=== PATIENT | female | born 1960 | race Caucasian/White ===

== ENCOUNTER → 2019-02-19 | Outpatient (REF) | payer BC ==
[~2019-02-19] MED LIST: ADV250INH INH; ALPR0.5T3 PO; ALPR1TAB3 PO; AMBI10TA PO; ATOR40TA75 PO; BACT800T5 PO; BREO1INH INH; BUPR300T92 PO; CALC-190 PO; CBD OIL; DAPT500I IV; ESTR1TAB PO; HYDR-2808 PO; KEFL250C11 PO; LAMI1TAB8 PO; LEVAINH INH; LEVO75TA4 PO; NICO21PAT TD; OMEG1CAP16 PO; OXAZ30CA2 PO; OXYC-517 PO; PERC5TAB12 PO; PHEN37.5 PO; QUET1TAB8 PO; VITA100T59 PO; VITA200021 PO; VITA500046 PO; VITA50005 PO; VITMTA PO; WELL100T PO
[2019-02-19 16:03] LABS: BASO # 0.1 10^3/uL (0.0-0.2); BASO % 0.6 % (0.0-1.0); EOS # 0.1 10^3/uL (0.0-0.5); EOS % 0.7 % (0.0-3.0); HEMATOCRIT 36.9 % (36.0-47.0); HEMOGLOBIN 11.4 g/dl (12.0-15.5); LYMPH # 1.5 10^3/uL (1.5-5.0); LYMPH % 16.9 % (24.0-44.0); MEAN CORPUSCULAR HEMOGLOBIN 28.6 pg (27.0-33.0); MEAN CORPUSCULAR HGB CONC 30.9 g/dl (32.0-36.5); MEAN CORPUSCULAR VOLUME 92.5 fl (80.0-96.0); MONO # 0.5 10^3/uL (0.0-0.8); MONO % 5.8 % (0.0-5.0); NEUTROPHILS # 6.8 10^3/uL (1.5-8.5); NEUTROPHILS % 75.8 % (36.0-66.0); PLATELET COUNT, AUTOMATED 361 10^3/uL (150-450); RED BLOOD COUNT 3.99 10^6/uL (4.00-5.40)
[2019-02-19 16:44] LABS: ERYTHROCYTE SEDIMENTATION RATE 36 mm/hr (0-30)
== END ==
LOC: M LABDRAW1 11:06 → MERGE 11:06
PROVIDERS: ATTEND Orthopaedic Surgery Hand Surgery
DX: Z47.1 Aftercare following joint replacement surgery (principal)

== ENCOUNTER → 2019-06-12 | Outpatient (CLI) | payer BC, MEDICARE ==
[~2019-06-12] MED LIST changes: +MONT10TA2 PO
[2019-06-12 10:46] LABS: HEMOGLOBIN 12.7 g/dl (12.0-15.5); MEAN CORPUSCULAR HEMOGLOBIN 25.5 pg (27.0-33.0); MEAN CORPUSCULAR HGB CONC 30.2 g/dl (32.0-36.5); MEAN CORPUSCULAR VOLUME 84.2 fl (80.0-96.0); PLATELET COUNT, AUTOMATED 219 10^3/uL (150-450); RED BLOOD COUNT 4.99 10^6/uL (4.00-5.40); WHITE BLOOD COUNT 6.2 10^3/uL (4.0-10.0)
[2019-06-12 10:56] LABS: INR 0.99; PROTHROMBIN TIME 12.8 SECONDS (11.8-14.0)
[2019-06-12 11:15] LABS: ALBUMIN 3.7 GM/DL (3.2-5.2); ALT/SGPT 21 U/L (12-78); BILIRUBIN,TOTAL 0.3 MG/DL (0.2-1.0); BLOOD UREA NITROGEN 19 MG/DL (7-18); CALCIUM LEVEL 8.4 MG/DL (8.8-10.2); CARBON DIOXIDE LEVEL 27 MEQ/L (21-32); CHLORIDE LEVEL 111 MEQ/L (98-107); CREATININE FOR GFR 0.98 MG/DL (0.55-1.30); GLOMERULAR FILTRATION RATE > 60.0 (>45); GLUCOSE, FASTING 85 MG/DL (70-100); POTASSIUM SERUM 4.3 MEQ/L (3.5-5.1); SODIUM LEVEL 143 MEQ/L (136-145); TOTAL PROTEIN 6.8 GM/DL (6.4-8.2)
--- NOTE | 2019-06-13 02:56 | REP ---
Clinical: Preoperative assessment. Technique: PA and lateral. Comparison: None. Findings: Mediastinum and cardiac silhouette normal. Lung vyas are relatively clear. A vague 1 cm density in the left lower lung zone midclavicular line likely represents asymmetric nipple shadow and less likely underlying nodule. However, follow-up x-ray nipple markers may be warranted for further investigation. Skeletal changes involving the proximal left humerus noted. Impression: 1. Presumed asymmetric left nipple shadow less likely representing underlying pulmonary nodule. Consider reevaluation using nipple markers as follow-up exam. Electronically Signed by Jadiel Pizarro MD 06/13/2019 02:47 A
--- NOTE | 2019-06-14 01:10 | ECGEPIP ---
[facility] Test Date: 2019-06-12 Pat Name: SHAHEED BURGESS Department: Room: - Gender: Female Information Support Project Manager: LIDIA : [id number] Requested By: OFE Mixon Order Number: [id number] Reading MD: Ch[place] High Measurements Intervals [place] Rate: 72 P: 81 [place]: 158 QRS: 62 QRSD: 85 T: 79 QT: 391 QTc: 428 Interpretive Statements SINUS RHYTHM NONSPECIFIC T-WAVE ABNORMALITY NO PRIOR Electronically Signed on 06-14-2019 1:10:05 EST by Chico High
== END ==
LOC: M LAB 09:43
PROVIDERS: ATTEND Orthopaedic Surgery Hand Surgery
DX: Z01.818 Encounter for other preprocedural examination (principal)

== ENCOUNTER → 2019-06-13 | Outpatient (REF) | payer BC | LOC: M LABDRAW1 11:51 | DX: Z96.612 Presence of left artificial shoulder joint (principal) ==

== ENCOUNTER 2019-06-21 09:34 | Inpatient (IN) | payer MEDICARE, BC ==
--- NOTE | 2019-06-14 07:52 | HPE ---
DATE OF ANTICIPATED ADMISSION: 06/21/2019 ATTENDING PHYSICIAN: Dr. Urena CHIEF COMPLAINT: Left shoulder pain. HISTORY: This is a pleasant 59-year-old female patient with progressively worsening left shoulder pain and stiffness. She has failed to improve with conservative management, to include injections, rest, activity modifications, previous arthroplasty with secondary infection. She has pain with active and passive range of motions in all planes. She has elected for surgery for her continued symptoms. She has consented for a left revision arthroplasty by Dr. Urena. X-rays demonstrate intact antibiotic spacer in place with proximal migration. ALLERGIES: SULFA and PENICILLIN. Response: Urticaria and hives. INJECTABLE TORADOL, extremely nauseous and weak. CURRENT MEDICATIONS: - atorvastatin 40 mg - Breo Ellipta 100/25 mcg inhaler - levalbuterol HCL 1.25 mg/0.5 mL - estradiol 2 mg by mouth every day - CBD oil - quetiapine fumarate 100 mg - omega-3, 100 mg by mouth every day - alprazolam 2 mg - vitamin D 2000 units by mouth every day - levothyroxine sodium 75 mcg one by mouth every day - [id number] mg PAST MEDICAL HISTORY: 1. Hypothyroidism. 2. Hyperlipidemia. 3. Chronic obstructive pulmonary disease (COPD). 4. Insomnia. 5. Depression. 6. Anxiety. FAMILY HISTORY: Noncontributory. Patient is a current smoker, one to two packs daily. She does not use alcohol. REVIEW OF SYSTEMS: Denies fevers or chills. Denies chest pain, shortness of breath, or cough. Denies difficulty breathing. Denies abdominal pain. Denies nausea or vomiting. Has persistent pain in the left shoulder with range of motion in all planes. Denies upper respiratory infection (URI) or urinary tract infection (UTI) symptoms. VITAL SIGNS: Height 61, weight 139, temperature 97.9, blood pressure 121/79, pulse 84, respiratory rate 16. PHYSICAL EXAMINATION: Today reveals a well-nourished, well-developed, alert female patient without an antalgic gait. Exam of the left shoulder: Skin to be intact. No erythema, edema, or ecchymosis. She has tenderness over the anterolateral aspect of her shoulder with decreased range of motion in all planes. Well-perfused left lower extremity. Neck is supple without adenopathy or jugular venous distention (JVD). Lungs are clear to auscultation without rales or wheeze. Heart: Regular rate and rhythm. Abdomen: Bowel sounds present. EKG: Noted for sinus rhythm. Chest x-ray: No acute cardiopulmonary process noted. LABORATORY WORK: White count 6.2, red count 4.99, hemoglobin 12.7, hematocrit 42.0, ESR of 12. Prothrombin time 12.8, INR 0.99. Glucose 85, BUN 19, creatinine 0.98, sodium 143, potassium 4.3. PREOPERATIVE MEDICAL OPTIMIZATION: Patient does not have a provider at this time. Reviewed pre and post operative instructions to include but not limited to-need to be NPO after midnight, when to stop NSAIDs and ASA, importance of following primarys and cardiologists recommendations for stopping anticoagulants and the primary recommendations for how to take their daily medications IMPRESSION: Chronic left shoulder pain with previous secondary infection after arthroplasty. PLAN: Consented for a revision left shoulder arthroplasty by Dr. Urena. CELIA
[~2019-06-21] VITALS: Ht 154.9 cm; Wt 63.5 kg
[2019-06-21] VITALS (7 sets, daily range): BP systolic 120–140; BP diastolic 56–76
[~2019-06-21 09:34] MED LIST changes: +LR 1,000 ML IV ONE; -MONT10TA2 PO; +MONT10TA4 PO; +QUET100T2 PO; -QUET1TAB8 PO; +VITA-199 PO; +ZAFI1TAB PO; +ceFAZolin SOD 2 GM in IV 1 EA IV ONE
[2019-06-21] MEDS ORDERED: ROCURONIUM BROMIDE 50 MG/5 ML VIAL As Ordered ONE ×2 (10:26→13:19)
[2019-06-21] MEDS ORDERED: MIDAZOLAM INJ 2 MG/2 ML VIAL (J2250) As Ordered ONE ×2 (10:26→11:02)
[2019-06-21] MEDS ORDERED: LIDOCAINE 2% INJ 100 MG/5 ML SDV (FOR ANES.) As Ordered ONE (10:26)
[2019-06-21] MEDS ORDERED: propofoL 200 MG/20 ML VIAL As Ordered ONE (10:26)
[2019-06-21] MEDS ORDERED: ONDANSETRON 4MG/2ML VIAL (J2405) As Ordered ONE (10:27)
[2019-06-21] MEDS ORDERED: fentaNYL 100 MCG/2 ML INJECTION (J3010) As Ordered ONE ×2 (10:27→11:02)
[2019-06-21] MEDS ORDERED: dexameTHASONE 4 MG/ML 1ML VIAL (J1100) As Ordered ONE (10:27)
[2019-06-21] MEDS ORDERED: CLINDAMYCIN 900 MG/50 ML PREMIX BAG As Ordered ONE (10:55)
[2019-06-21] MEDS ORDERED: ALBUTEROL SULFATE 2.5 MG/0.5 ML INH NEB SOLN As Ordered ONE (10:56)
[2019-06-21] MEDS ORDERED: LEVALBUTEROL 1.25 MG/0.5 ML CONCENTRATE NEB INH ONE (11:00)
[2019-06-21] MEDS ORDERED: CLINDAMYCIN 900 MG in IV 1 EA IV ONE (11:00)
[2019-06-21] MEDS ORDERED: EPINEPHrine INJ 1 MG/ML 1ML VIAL As Ordered ONE (11:12)
[2019-06-21] MEDS ORDERED: VANCOMYCIN HCL 1,000 MG, VIAL MATE ADAPTER 1 EACH in D5W 250 ML IV ONE (11:30)
[2019-06-21] MEDS ORDERED: MIDAZOLAM INJ 2 MG/2 ML VIAL (J2250) IV ONE (12:15)
[2019-06-21] MEDS ORDERED: fentaNYL 100 MCG/2 ML INJECTION (J3010) IV ONE (12:15)
[2019-06-21] MEDS ORDERED: PHENYLephrine HCL 500 MCG/5 ML (100MCG/ML) SYRINGE (J2370) As Ordered ONE ×2 (12:21→12:42)
[2019-06-21] MEDS ORDERED: PHENYLEPHRINE INJ 10MG/ML VIAL (J2370) As Ordered ONE (12:22)
[2019-06-21] MEDS ORDERED: ROPIvacaine 0.5% 30 ML INJECTION (J2795 PER 1MG) ONE (13:29)
[2019-06-21] MEDS ORDERED: dexameTHASONE 10 MG/1 ML VIAL PRES.FREE (J1100) ONE (13:29)
[2019-06-21] MEDS ORDERED: SUGAMMADEX SODIUM 500 MG/5 ML VIAL (BRIDION) As Ordered ONE (13:59)
[2019-06-21] MEDS: fentaNYL 100 MCG/2 ML INJECTION (J3010) IV PRN ×4 (14:38→14:55)
--- NOTE | 2019-06-21 14:49 | REP ---
Portable left shoulder single AP view: There is a total shoulder arthroplasty with the components tightly applied and in satisfactory positions alignment. Electronically Signed by Aaron Claros MD 06/21/2019 02:40 P
[2019-06-21] MEDS ORDERED: ONDANSETRON 4MG/2ML VIAL (J2405) IV PRN (15:00)
[2019-06-21] MEDS ORDERED: oxyCODONE 5MG TAB PO PRN (15:00)
[2019-06-21] MEDS ORDERED: LR 1,000 ML IV SCH (15:00)
[2019-06-21] MEDS ORDERED: KETOROLAC 30 MG/ML VIAL (J1885) As Ordered ONE (15:12)
--- NOTE | 2019-06-21 15:25 | RO ---
DATE OF PROCEDURE: 06/21/2019 PREPROCEDURE DIAGNOSES: Left infected reverse shoulder replacement, status post irrigation and debridement and interspace placement. POSTPROCEDURE DIAGNOSES: Left infected reverse shoulder replacement, status post irrigation and debridement and interspace placement. PROCEDURE: Left shoulder irrigation and debridement of deep infection, complex with removal of deep hardware and placement of a revision reverse shoulder replacement, BLANKENSHIP. Frozen section taken intraoperatively with cultures. SURGEON: Neil Urena MD HYDRAULIC AND PLUMBING INSTALLER: None. PREOPERATIVE ANTIBIOTICS: 1 gram of vancomycin and 900 mg of clindamycin. ESTIMATED BLOOD LOSS: Approximately 250 mL. IMPLANTS: BLANKENSHIP reverse shoulder replacement, 15 stem with a 9 mm truck trailer mechanic and a 3 mm poly, 40 glenosphere with a medium peg and a 30 and 25 mm screw. OPERATIVE FINDINGS: We took deep tissue samples and sent them to pathology during the procedure. These came back as at most 1 white blood cell per high powered vyas, suggestive of no active infection or inflammation. Decision was made to proceed with revision reverse shoulder arthroscopy. INDICATIONS: This is a 59-year-old female who suffered a four part proximal humerus fracture this past December. Decision was made to undergo reverse shoulder arthroplasty at that time, we were unable to get adequate fixation for open reduction, internal fixation (ORIF). Subsequently, the patient developed subacute infection. She underwent irrigation and debridement and antibiotic cement spacer placed. After prolonged IV antibiotics and antibiotic holiday, all the laboratories showed no signs of active infection. Decision was made to do a revision reverse shoulder arthroscopy. We discussed the risks and benefits of this, including infection, damage to surrounding structures, incomplete relief and the patient understood and wished to proceed. DESCRIPTION OF PROCEDURE: The patient was brought to the operating room and placed in supine position. Underwent general anesthesia. At which point, the left arm was prepped and draped in the usual fashion. A time out was performed identifying site, side and surgery. We then made a longitudinal incision over the previous scar at the deltopectoral interval. We dissected through subcutaneous tissue and careful of superficial bleeders. We encountered axillary vein. Cephalic vein was very deep within the scar and unfortunately had to be tied off due to bleeding, at which point we split the deltopectoral interval and found the conjoin tendon and packed it up medially. We removed adhesions from the subdeltoid space. We placed a Benz retractor in place. We then took tissue sample deep within the glenohumeral joint and sent it off to pathology. At this point, we continued debriding the area of all scar tissue. At this point, we irrigated 3 liters of normal saline while waiting for the pathology to return. Once it has returned and it was suggestive of no acute inflammation, we decided to proceed with reverse shoulder replacement revision. We then debrided the glenoid, placed our centered antony approximately 10 degrees inferior and 20 degrees of anteversion. We reamed to subchondral bleeding bone, at which point we drilled for our center peg of medium size and impacted the baseplate. We then drilled a 30 superior and 25 inferior screw and placed them in, which had very good bite. We then impacted the 40 mm glenosphere on the Stout taper and then used the central locking screw in place. Once this was done, we turned our attention to the humerus. We sequentially reamed up to 15, at which point we had a nice tight fit of diaphysis. We then made a trial body at 15 and worked our up sequentially to a 9 truck trailer mechanic and 3 poly. We then opened up the 15 stem, the body, along with 9 mm truck trailer mechanic, at which point we trialed standard 3 mm again. We were very happy with the 3 mm fit. There was good range of motion and about 1 mm or 2 on shuck test. We then opened the 3 mm poly and impacted it. We ran another 1.5 liters of saline and irrigating through range of motion and very happy with the stability in range of motion of the shoulder, at which point we closed the deltopectoral with 0 Prolene, subcutaneous tissue with 2-0 PDS and skin with 2-0 nylon, and placed a foam dressing. The patient was then placed in a sling. She was awakened and taken to the postanesthesia care unit (PACU) in stable condition. We will start to work on pain control and range of motion and be placed on antibiotic prophylaxis. ADDENDUM: Within the operative description, once we entered the joint and soft tissue we then used a flexible osteotome to remove the cement bone interface of the proximal humerus to remove the antibiotic cement spacer. This was done, then we used curettes to debride the humeral shaft, proximal humeral shaft within the intramedullary canal along with the glenoid to help irrigate and debride any previous sign of infection or bone at that time along with scar tissue. Modifier 22 added due to the increased time needed due to revision surgery along with multiple previous surgeries and scarring due to infection taking siginificatly more time and additional difficulty. Addendum Dictated: 06/21/2019 1442 Addendum Transcribed: 06/21/2019 1449 esther YANG
[2019-06-21] MEDS ORDERED: KETOROLAC 30 MG/ML VIAL (J1885) IV ONE (15:30)
--- NOTE | 2019-06-21 15:53 | RO ---
DATE OF PROCEDURE: 06/21/2019 COPIED AND PASTED TO ORIGINAL OPERATIVE NOTE ADDENDUM: Within the operative description, once we entered the joint and soft tissue we then used a flexible osteotome to remove the cement bone interface of the proximal humerus to remove the antibiotic cement spacer. This was done, then we used curettes to debride the humeral shaft, proximal humeral shaft within the intramedullary canal along with the glenoid to help irrigate and debride any previous sign of infection or bone at that time along with scar tissue. modifier 22 added due to the increased time and difficulty needed due to revision surgery along with multiple previous surgeries due to infection. Addendum Dictated: 06/21/2019 1442 Addendum Transcribed: 06/21/2019 1449 esther YANG
[2019-06-21] MEDS ORDERED: LEVALBUTEROL 1.25 MG/0.5 ML CONCENTRATE NEB INH PRN (16:30)
[2019-06-21] MEDS: NS 1,000 ML IV SCH (16:34)
[2019-06-21] MEDS ORDERED: PILL CUTTER 1 EACH XX PRN (16:45)
--- NOTE | 2019-06-21 16:49 | CR.PDOC ---
General Date of Consultation: Jun 21, 2019 Referring Provider: OFE DECKER MD Consultation REASON FOR CONSULTATION/CHIEF COMPLAINT: Medical management. HISTORY OF PRESENT ILLNESS: This is 59 years old female with past medical history of 4 part proximal humeral fracture last year and was decided to undergo to wear shoulder arthroplasty at that time as orthopedics was unable to do ORIF. , But unfortunately, patient developed subacute infection of the site. Hence, she was treated with prolonged antibiotics and once the sugars were negative, it was decided to perform a left infected reverse shoulder replacement surgery. Patient had the left infected reverse shoulder replacement and is status post I&D done today and OR and transferred to medical floor for postop care. Patient complains of pain at the surgical site, otherwise no complaints of chest pain, shortness of breath, nausea, vomiting, abdominal pain, extra ALLERGIES: Please see below. HOME MEDICATIONS: Please see below. PAST MEDICAL HISTORY: Hypothyroidism, hyperlipidemia, COPD, insomnia, depression, anxiety PAST SURGICAL HISTORY: , 2. Hysterectomy 10 years ago with radiation chemotherapy total shoulder repair FAMILY HISTORY: Family history is noncontributory. No history of diabetes or cancer in the [facility] SOCIAL HISTORY: Patient smokes 1 pack per day and occasional alcohol use but no drug use REVIEW OF SYSTEMS: CONSTITUTIONAL: No fever, headache. HEENT: No eyes or ear pain. CARDIOVASCULAR: . No chest pain or palpitations. RESPIRATORY: No cough or shortness of breath. GENITOURINARY: , No dysuria, frequency. MUSCULOSKELETAL: . Complaining of pain at the surgical site. GASTROINTESTINAL: No nausea, vomiting . SKIN: No rash or itching. NEUROLOGICAL: . No weakness or motor sensory weakness. PSYCHIATRIC: No anxiety or depression. ENDOCRINE: , No diabetes, but has history of hypothyroid. HEMATOLOGIC/LYMPHATIC: No anemia or leukemia by history. ALLERGIC/IMMUNOLOGIC: None. PHYSICAL EXAMINATION: VITAL SIGNS: Heart rate 66, respiratory rate of 16, blood pressure 109/59, pulse ox is 96% on room air GENERAL APPEARANCE: Within normal range. HEENT: PERRLA. Extraocular muscles intact. RESPIRATORY: Clear to A&P. CARDIOVASCULAR: S1, S2, regular. ABDOMEN: , Soft, nontender. Once was present. EXTREMITIES: Dressing of the left shoulder. NEUROLOGICAL: . No focal motor sensory deficit. PSYCHIATRIC: Within normal limits. LABORATORY DATA: WBC count is 6.2, hemoglobin 12.7, hematocrit 42, platelets are 219. Electrolyte within normal range. His BUN of 19, a creatinine of 0.98 done on the 2019 as outpatient ASSESSMENT/PLAN: #1 status post left infected reverse shoulder replacement, status post I&D #2 COPD #3 hypothyroidism. #4. Hyperlipidemia #5 depression #6. Anxiety Patient has been transferred to medical floor for postop care Physical therapy evaluation Pain management as per orthopedic DVT prophylaxis as per orthopedic Will continue all patient's home meds including fluticasone inhaler Will also continue all patient's psychiatric meds including alprazolam and Sero quel Will continue atorvastatin, Lamictal and levothyroxine A.m. lab work, CBC, CMP and TSH is been ordered Discharge planning as per orthopedic surgery Vital Signs/I&O Vital Signs Date Time Temp Pulse Resp B/P (MAP) Pulse Ox O2 Delivery O2 Flow Rate FiO2 06/21/19 15:55 66 16 109/59 (76) 96 Nasal Cannula 2 06/21/19 15:30 97.0 Laboratory Data Microbiology Microbiology 06/21/19 Fungal Smear, Received Pending 06/21/19 Fungal Culture, Received Pending 06/21/19 Gram Stain - Final, Resulted 06/21/19 Wound Culture, Resulted Pending 06/21/19 Anaerobic Culture, Resulted Pending 06/21/19 Gram Stain - Final, Resulted 06/21/19 Wound Culture, Resulted Pending 06/21/19 Anaerobic Culture, Resulted Pending Allergies Coded Allergies: Penicillins (Verified Allergy, Severe, DIFFICULTY BREATHING, HIVES, 06/07/19) Sulfa (Sulfonamide Antibiotics) (Verified Allergy, Intermediate, rash and hives, 06/20/19) tramadol (Verified Adverse Reaction, Intermediate, HALLUCINATIONS, 06/20/19) Home Medications Scheduled Alprazolam (Alprazolam) 1 Mg Tab, 1 MG PO BID, (Reported) Atorvastatin Calcium (Atorvastatin Calcium) 40 Mg Tablet, 40 MG PO DAILY, (Reported) Cholecalciferol (Vitamin D3) (Vitamin D3) 10,000 Unit Tablet, 50,000 UNIT PO 1XWK, (Reported) Estradiol (Estradiol) 1 Mg Tab, 2 MG PO DAILY, (Reported) Fluticasone/Vilanterol (Breo Ellipta 100-25 Mcg INH) 1 Each Blst.w.dev, 1 PUFF INH DAILY, (Reported) Lamotrigine (Lamictal) 150 Mg Tablet, 150 MG PO DAILY, (Reported) Levothyroxine Sodium (Levothyroxine Sodium) 75 Mcg Tablet, 75 MCG PO DAILY, (Reported) Nicotine (Nicotine Patch) 21 Mg Patch.td24, 1 PATCH TD DAILY for 30 Days, #30 Quetiapine Fumarate (Quetiapine Fumarate) 100 Mg Tablet, 100 MG PO DAILY, (Reported) Zafirlukast (Zafirlukast) 20 Mg Tablet, 20 MG PO BIDPC, (Reported) Scheduled PRN Levalbuterol Hydrochloride (Xopenex Hfa) 45 Mcg/Act Aer, 2 PUFF INH Q4H PRN for SOB/WHEEZING, (Reported) ALESSANDRA CAMACHO MD Jun 21, 2019 16:49
[2019-06-21] MEDS: CLINDAMYCIN 600 MG in IV 1 EA IV SCH (18:51)
[2019-06-21] MEDS: MORPHINE 2 MG/ML 1ML VIAL (J2270) IV PRN (18:51)
[2019-06-21] MEDS: FLUTICASONE HFA 110 MCG 12 GM INHALER (FLOVENT) INH SCH (20:26)
[2019-06-21] MEDS: ALPRAZolam 0.5 MG TAB PO SCH (20:26)
[2019-06-21] MEDS: lamoTRIgine 100MG TAB PO SCH (20:33)
[2019-06-21] MEDS: NICOTINE 21MG/24HR 1 EA TRANSDERMAL TD SCH (20:34)
[2019-06-21] MEDS: QUEtiapine FUMARATE 100 MG TAB PO SCH (20:35)
[2019-06-21] MEDS: KETOROLAC 30 MG/ML VIAL (J1885) IV SCH (20:43)
[2019-06-21] MEDS: oxyCODONE 5MG TAB PO PRN (23:39)
[2019-06-22] MEDS: NS 1,000 ML IV SCH ×2 (00:38→11:00)
[2019-06-22 02:00] VITALS: BP 137/66
[2019-06-22] MEDS: KETOROLAC 30 MG/ML VIAL (J1885) IV SCH (02:19)
[2019-06-22] MEDS: CLINDAMYCIN 600 MG in IV 1 EA IV SCH ×2 (03:41→11:05)
[2019-06-22] MEDS: oxyCODONE 5MG TAB PO PRN ×5 (03:43→22:39)
[2019-06-22 06:00] VITALS: BP 123/73
[2019-06-22] MEDS: LEVOTHYROXINE 75MCG TABLET (0.075MG) PO SCH (06:05)
[2019-06-22] MEDS: MORPHINE 2 MG/ML 1ML VIAL (J2270) IV PRN (06:14)
[2019-06-22 06:49] LABS: BASO % 0.2 % (0.0-1.0); HEMATOCRIT 27.1 % (36.0-47.0); HEMOGLOBIN 8.3 g/dl (12.0-15.5); LYMPH # 1.1 10^3/uL (1.5-5.0); LYMPH % 10.9 % (24.0-44.0); MEAN CORPUSCULAR HGB CONC 30.6 g/dl (32.0-36.5); MONO # 0.7 10^3/uL (0.0-0.8); MONO % 7.2 % (0.0-5.0); NEUTROPHILS % 81.2 % (36.0-66.0); PLATELET COUNT, AUTOMATED 187 10^3/uL (150-450); RED BLOOD COUNT 3.19 10^6/uL (4.00-5.40); WHITE BLOOD COUNT 9.9 10^3/uL (4.0-10.0)
[2019-06-22 07:06] LABS: INR 0.97; PARTIAL THROMBOPLASTIN TIME 27.7 SECONDS (25.0-38.4); PROTHROMBIN TIME 12.6 SECONDS (11.8-14.0)
[2019-06-22 07:27] LABS: ALBUMIN 2.9 GM/DL (3.2-5.2); ALT/SGPT 23 U/L (12-78); BILIRUBIN,TOTAL 0.2 MG/DL (0.2-1.0); BLOOD UREA NITROGEN 18 MG/DL (7-18); CALCIUM LEVEL 7.5 MG/DL (8.8-10.2); CARBON DIOXIDE LEVEL 23 MEQ/L (21-32); CHLORIDE LEVEL 114 MEQ/L (98-107); CREATININE FOR GFR 0.88 MG/DL (0.55-1.30); GLOMERULAR FILTRATION RATE > 60.0 (>45); GLUCOSE, FASTING 111 MG/DL (70-100); SODIUM LEVEL 142 MEQ/L (136-145); THYROID STIMULATING HORMONE 0.364 uIU/ML (0.358-3.740); TOTAL PROTEIN 5.6 GM/DL (6.4-8.2)
[2019-06-22] MEDS: FLUTICASONE HFA 110 MCG 12 GM INHALER (FLOVENT) INH SCH ×2 (08:36→21:00)
[2019-06-22] MEDS: estradioL 1 MG TAB PO SCH (09:29)
[2019-06-22] MEDS: ATORVASTATIN 20 MG TAB PO SCH (09:29)
[2019-06-22] MEDS: NICOTINE 21MG/24HR 1 EA TRANSDERMAL TD SCH (09:30)
[2019-06-22] MEDS: ALPRAZolam 0.5 MG TAB PO SCH ×2 (09:30→21:43)
[2019-06-22 10:00] VITALS: BP 131/68
--- NOTE | 2019-06-22 10:04 | IPNPDOC ---
Subjective Date Seen The patient was seen on 06/22/19. Subjective Chief Complaint/HPI Patient is comfortable in no distress. Pain is under well control with oxycodone General: Denies: ROS Unobtainable, Chills, Night Sweats, Fatigue, Malaise, Normal Appetite, Other Symptoms Constitutional: Denies: Chills, Fever, Malaise, Night Sweats, Weakness, Fatigue, Weight Loss, Lethargy, Other Pulmonary: Denies: Dyspnea, Cough, Pleuritic Chest Pain, Other Symptoms Cardiovascular: Denies: Chest Pain, Palpitations, Orthopnea, Paroxysmal Noc. Dyspnea, Edema, Lt Headedness, Other Symptoms Gastrointestinal: Denies: Nausea, Vomiting, Abdominal Pain, Diarrhea, Constipation, Melena, Hematochezia, Other Symptoms Genitourinary: Denies: Dysuria, Frequency, Incontinence, Hematuria, Retention, Other Symptoms Musculoskeletal: Denies: Neck Pain, Back Pain, Shoulder Pain, Arm Pain, Hand Pain, Leg Pain, Foot Pain, Joint Pain, Muscle Pain, Spasms, Other Symptoms Neurological: Denies: Weakness, Numbness, Incoordination, Change in speech, Confusion, Seizures, Other Symptoms Objective Physical Examination Eye Exam: Positive: PERRLA, Conjunctiva & lids normal ENT Exam: Positive: Atraumatic, Mucous membr. moist/pink Chest Exam: Positive: Clear to auscultation Heart Exam: Positive: Rate Normal, Normal S1, Normal S2 Abdomen Exam: Positive: Normal bowel sounds, Soft Extremity Exam: Positive: Normal pulses Skin Exam: Positive: Nl turgor and temperature Assessment /Plan Problems (1) Prosthetic joint infection Status: Acute Problem Text: (2) Hyperlipidemia Status: Chronic (3) HTN (hypertension) Status: Chronic (4) COPD (chronic obstructive pulmonary disease) Status: Chronic (5) Depression Status: Chronic (6) Anxiety Status: Chronic Plan/VTE VTE Prophylaxis Ordered?: Yes Plan #1 status post left infected reverse shoulder replacement, status post I&D #2 COPD #3 hypothyroidism. #4. Hyperlipidemia #5 depression #6. Anxiety Patient receiving physical therapy on the medical floor Symptoms are very well, very well under control secondary to pain management DVT prophylaxis as per orthopedic Continue patient's home meds Also continue patient's psych meds as well Discharge planning as per orthopedic VS, I&O, 24H, [place] Vital Signs/I&O Vital Signs Date Time Temp Pulse Resp B/P (MAP) Pulse Ox O2 Delivery O2 Flow Rate FiO2 06/22/19 09:45 16 06/22/19 06:00 97.4 89 123/73 (90) 93 Nasal Cannula 1.5 I&O- Last 24 Hours up to 6 AM 06/22/19 06:00 Intake Total 4340 ml Output Total 250 ml Balance 4090 ml Laboratory Data 24H LABS Laboratory Tests 2 06/22/19 06:33: Immature Granulocyte % (Auto) 0.5, Neutrophils (%) (Auto) 81.2H, Lymphocytes (%) (Auto) 10.9L, Monocytes (%) (Auto) 7.2H, Eosinophils (%) (Auto) 0.0, Basophils (%) (Auto) 0.2, Neutrophils # (Auto) 8.0, Lymphocytes # (Auto) 1.1L, Monocytes # (Auto) 0.7, Eosinophils # (Auto) 0.0, Basophils # (Auto) 0.0, Nucleated Red Blood Cells % (auto) 0.0, Prothrombin Time 12.6, Prothromb Time International Ratio 0.97, Activated Partial Thromboplast Time 27.7, Anion Gap 5L, Glomerular Filtration Rate > 60.0, Calcium Level 7.5L, Total Bilirubin 0.2, Aspartate Amino Transf (AST/SGOT) 19, Alanine Aminotransferase (ALT/SGPT) 23, Alkaline Phosphata se 97, Total Protein 5.6L, Albumin 2.9L, Albumin/Globulin Ratio 1.07, Thyroid Stimulating Hormone (TSH) 0.364 CBC/BMP Laboratory Tests 06/22/19 06:33 Microbiology Microbiology 06/21/19 Fungal Smear, Received Pending 06/21/19 Fungal Culture, Received Pending 06/21/19 Gram Stain - Final, Resulted 06/21/19 Wound Culture, Resulted Pending 06/21/19 Anaerobic Culture, Resulted Pending 06/21/19 Gram Stain - Final, Resulted 06/21/19 Wound Culture, Resulted Pending 06/21/19 Anaerobic Culture, Resulted Pending ALESSANDRA CAMACHO MD Jun 22, 2019 10:04
[2019-06-22 14:00] VITALS: BP 136/68
[2019-06-22 18:00] VITALS: BP 129/70
[2019-06-22] MEDS: QUEtiapine FUMARATE 100 MG TAB PO SCH (21:43)
[2019-06-22] MEDS: lamoTRIgine 100MG TAB PO SCH (21:43)
[2019-06-22 22:00] VITALS: BP 148/75
[2019-06-23 00:34] VITALS: O2SAT 94
[2019-06-23] MEDS: oxyCODONE 5MG TAB PO PRN ×2 (02:52→09:43)
[2019-06-23] MEDS: LEVOTHYROXINE 75MCG TABLET (0.075MG) PO SCH (06:05)
[2019-06-23 06:11] VITALS: BP 136/78
[2019-06-23] MEDS ORDERED: OXYC-517 PO (06:37)
[2019-06-23] MEDS: FLUTICASONE HFA 110 MCG 12 GM INHALER (FLOVENT) INH SCH (08:54)
[2019-06-23] MEDS: NICOTINE 21MG/24HR 1 EA TRANSDERMAL TD SCH (09:00)
[2019-06-23 09:37] VITALS: O2SAT 95
[2019-06-23] MEDS: estradioL 1 MG TAB PO SCH (09:37)
[2019-06-23] MEDS: ALPRAZolam 0.5 MG TAB PO SCH (09:37)
[2019-06-23] MEDS: ATORVASTATIN 20 MG TAB PO SCH (09:37)
--- NOTE | 2019-06-23 10:34 | IPNPDOC ---
Subjective Date Seen The patient was seen on 06/23/19. Subjective Chief Complaint/HPI Patient is emotionally upset, crying in bed as per patient, her father has last night and she wished to be discharged home today. As per patient, she spoke with orthopedics last night and they had met are made arrangements to discharge her today General: Denies: ROS Unobtainable, Chills, Night Sweats, Fatigue, Malaise, Normal Appetite, Other Symptoms Pulmonary: Denies: Dyspnea, Cough, Pleuritic Chest Pain, Other Symptoms Cardiovascular: Denies: Chest Pain, Palpitations, Orthopnea, Paroxysmal Noc. Dyspnea, Edema, Lt Headedness, Other Symptoms Psych: Reports: Anger, Other Psych (upset) Objective Physical Examination ENT Exam: Positive: Atraumatic, Mucous membr. moist/pink Chest Exam: Positive: Clear to auscultation Heart Exam: Positive: Rate Normal, Normal S1, Normal S2 Abdomen Exam: Positive: Normal bowel sounds, Soft Extremity Exam: Positive: Normal pulses Assessment /Plan Problems (1) Prosthetic joint infection Status: Acute Problem Text: Patient will be discharged home today as per orthopedics recommendations Follow-up with orthopedics as outpatient Continue all present home medication as per discharge instructions (2) Hyperlipidemia Status: Chronic Problem Text: Continue home meds (3) HTN (hypertension) Status: Chronic Problem Text: Continue home meds (4) COPD (chronic obstructive pulmonary disease) Status: Chronic Problem Text: Continue home meds (5) Depression Status: Chronic Problem Text: Continue home meds (6) Anxiety Status: Chronic Problem Text: Continue home meds Plan/VTE VTE Prophylaxis Ordered?: Yes VS, I&O, 24H, Fishbone Vital Signs/I&O Vital Signs Date Time Temp Pulse Resp B/P (MAP) Pulse Ox O2 Delivery O2 Flow Rate FiO2 06/23/19 09:43 18 Room Air 06/23/19 06:11 97.7 69 136/78 (97) 92 06/22/19 07:20 1.0 I&O- Last 24 Hours up to 6 AM 06/23/19 06:00 Intake Total 855 ml Output Total 900 ml Balance -45 ml Laboratory Data Microbiology Microbiology 06/21/19 Fungal Smear, Received Pending 06/21/19 Fungal Culture, Received Pending 06/21/19 Gram Stain - Final, Complete 06/21/19 Wound Culture - Final, Complete 06/21/19 Anaerobic Culture - Final, Complete 06/21/19 Gram Stain - Final, Complete 06/21/19 Wound Culture - Final, Complete 06/21/19 Anaerobic Culture - Final, Complete ALESSANDRA CAMACHO MD Jun 23, 2019 10:34
--- NOTE | 2019-06-27 15:20 | DSES ---
DATE OF ADMISSION: 06/21/2019 DATE OF DISCHARGE: 06/23/2019 ATTENDING PHYSICIAN: Dr. Neil Urena ADMISSION DIAGNOSIS: Left infected reverse shoulder replacement status post irrigation and debridement and interspace placement. OTHER DIAGNOSES: Hypothyroid, hyperlipidemia, chronic obstructive pulmonary disease, insomnia, depression, anxiety. DISCHARGE DIAGNOSES: Left infected reverse shoulder replacement status post left shoulder irrigation and debridement of deep infection, complex with removal of deep hardware and placement of a revision reverse shoulder replacement, BLANKENSHIP. Frozen section taken intraoperatively with cultures. HISTORY: The patient is a 59-year-old female who suffered a four-part proximal humerus fracture this past December. Decision was made to undergo of reverse shoulder arthroplasty at that time. Subsequently, the patient developed subacute infection. She underwent irrigation and debridement and antibiotic cement spacer placement. After prolonged IV antibiotics and antibiotic holiday, all the laboratories showed no signs of active infection. Decision was made to do a revision reverse shoulder arthroplasty. Risks and benefits to include infection, damage to surrounding tissues and incomplete relief of symptoms was discussed with the patient and the patient consented for this elective procedure with Dr. Neil Urena. OPERATION PERFORMED: Left shoulder irrigation and debridement of deep infection, complex with removal of deep hardware, placement of a revision reverse shoulder replacement, BLANKENSHIP. Frozen section taken intraoperatively with cultures. HOSPITAL COURSE: The patient underwent a left shoulder, incision and drainage of a deep infection with removal of deep hardware and placement of a revision reverse shoulder replacement, BLANKENSHIP. Surgery was done under general anesthesia and was without complication. The patient was discharged on oral pain medications and will resume her preoperative medications and diet. She will use her sling and take her antibiotics as directed for prophylaxis. She will followup in our office in 7-10 days for wound check. The patient is encouraged to contact our office sooner if there is any increase in pain, redness, drainage, numbness or tingling in the extremity, fever greater than 101 degrees or any other concerns. Please see medical record for additional details. RIGOD
== END 2019-06-23 11:50 | disposition home or self-care (01) | DRG 483 ==
LOC: M OR 09:34 → EDSTATUS 12:00 → M MS5PR 16:12
PROVIDERS: ADMIT Orthopaedic Surgery Hand Surgery; ATTEND Orthopaedic Surgery Hand Surgery
PROC: 0RPK08Z Removal of Spacer from Left Shoulder Joint, Open Approach (ICD-10-PCS; 2019-06-21)
PROC: 0RRK0JZ Replacement of Left Shoulder Joint with Synthetic Substitute, Open Approach (ICD-10-PCS; principal; 2019-06-21 11:30)
DX: T84.59XA Infection and inflammatory reaction due to other internal joint prosthesis, initial encounter (principal); Z88.2 Allergy status to sulfonamides; Z88.0 Allergy status to penicillin; Z88.5 Allergy status to narcotic agent; Z79.899 Other long term (current) drug therapy; E03.9 Hypothyroidism, unspecified; E78.5 Hyperlipidemia, unspecified; J44.9 Chronic obstructive pulmonary disease, unspecified; G47.00 Insomnia, unspecified; F32.9 Major depressive disorder, single episode, unspecified; F41.9 Anxiety disorder, unspecified; F17.200 Nicotine dependence, unspecified, uncomplicated; Y83.1 Surgical operation with implant of artificial internal device as the cause of abnormal reaction of the patient, or of later complication, without mention of misadventure at the time of the procedure

== ENCOUNTER → 2019-10-24 | Outpatient (REF) | payer MEDICARE, BC ==
[~2019-10-24] MED LIST changes: -LR 1,000 ML IV ONE; -ceFAZolin SOD 2 GM in IV 1 EA IV ONE
[2019-10-24 14:13] LABS: BASO # 0.1 10^3/uL (0.0-0.2); BASO % 1.1 % (0.0-1.0); EOS # 0.7 10^3/uL (0.0-0.5); HEMATOCRIT 36.3 % (36.0-47.0); HEMOGLOBIN 11.4 g/dl (12.0-15.5); LYMPH # 1.3 10^3/uL (1.5-5.0); LYMPH % 23.8 % (24.0-44.0); MEAN CORPUSCULAR HEMOGLOBIN 24.8 pg (27.0-33.0); MEAN CORPUSCULAR HGB CONC 31.4 g/dl (32.0-36.5); MEAN CORPUSCULAR VOLUME 79.1 fl (80.0-96.0); MONO # 0.5 10^3/uL (0.0-0.8); NEUTROPHILS # 2.9 10^3/uL (1.5-8.5); NEUTROPHILS % 52.9 % (36.0-66.0); PLATELET COUNT, AUTOMATED 230 10^3/uL (150-450); RED BLOOD COUNT 4.59 10^6/uL (4.00-5.40); WHITE BLOOD COUNT 5.6 10^3/uL (4.0-10.0)
[2019-10-24 14:40] LABS: ERYTHROCYTE SEDIMENTATION RATE 1 mm/hr (0-30)
[2019-10-24 14:42] LABS: ALBUMIN 3.5 GM/DL (3.2-5.2); BILIRUBIN,TOTAL 0.3 MG/DL (0.2-1.0); C REACTIVE PROTEIN QUANTITATIV 1.59 MG/DL (0.00-0.30); CALCIUM LEVEL 8.7 MG/DL (8.8-10.2); CREATININE FOR GFR 1.09 MG/DL (0.55-1.30); GLOMERULAR FILTRATION RATE 54.5 (>45); POTASSIUM SERUM 3.7 MEQ/L (3.5-5.1); TOTAL PROTEIN 6.6 GM/DL (6.4-8.2); VANCOMYCIN LEVEL TROUGH 13.5 UG/ML (10.0-20.0)
== END ==
LOC: M SHH 13:30
DX: Z01.89 Encounter for other specified special examinations (principal)

== ENCOUNTER → 2022-04-29 | Outpatient (CLI) | payer BC, SELFPAY ==
[~2022-04-29] MED LIST changes: +ALPR1TAB6 PO; +ATOR80TA59 PO; +CALC600T60 PO; -DAPT500I IV; +DAPT500V8 IV; +ERGO500029 PO; +FLUT1BLS8 INH; -HYDR-2808 PO; +HYDR-4429 PO; -MONT10TA4 PO; +MONT10TA97 PO; +QUET200T2 PO
== END ==
LOC: M LABSMTC 09:27 → MERGE 09:30
PROVIDERS: ATTEND Anesthesiology
DX: Z01.812 Encounter for preprocedural laboratory examination (principal); Z11.52 Encounter for screening for COVID-19

== ENCOUNTER → 2022-05-03 | Outpatient (CLI) | payer BC, MEDICARE ==
[2022-05-03 15:52] LABS: HEMATOCRIT 41.6 % (36.0-47.0); HEMOGLOBIN 13.5 g/dl (12.0-15.5); MEAN CORPUSCULAR HGB CONC 32.5 g/dl (32.0-36.5); MEAN CORPUSCULAR VOLUME 92.4 fl (80.0-96.0); PLATELET COUNT, AUTOMATED 248 10^3/uL (150-450); WHITE BLOOD COUNT 6.7 10^3/uL (4.0-10.0)
[2022-05-03 16:11] LABS: CALCIUM LEVEL 8.6 MG/DL (8.3-10.6); CREATININE FOR GFR 1.08 MG/DL (0.55-1.30); GLOMERULAR FILTRATION RATE 54.7 (>45); POTASSIUM SERUM 3.9 MMOL/L (3.5-5.1)
[2022-05-03 16:14] LABS: FREE T4 1.11 NG/DL (0.89-1.76); THYROID STIMULATING HORMONE 1.706 uIU/ML (0.55-4.78)
== END ==
LOC: M LAB 15:17
PROVIDERS: ATTEND Plastic Surgery Surgery of the Hand
DX: J44.9 Chronic obstructive pulmonary disease, unspecified (principal); N64.81 Ptosis of breast; T85.44XA Capsular contracture of breast implant, initial encounter

== ENCOUNTER 2022-05-04 08:36 | Observation (INO) | payer SELFPAY ==
[~2022-05-04] VITALS: Ht 152.4 cm; Wt 57.2 kg
[~2022-05-04 08:36] MED LIST changes: +ALBUTEROL SULFATE 2.5MG/0.5ML INH NEB SOLN INH STA; +CLINDAMYCIN 900 MG in IV 1 EA IV ONE; +LIDOCAINE 2% 100MG/5ML SDV (FOR ANES.) As Ordered ONE; +LR 1,000 ML IV SCH; +MIDAZOLAM INJ 2MG/2ML VIAL As Ordered ONE; +ONDANSETRON 4MG 2ML VIAL As Ordered ONE; +ROCURONIUM BROMIDE 50MG/5ML VIAL As Ordered ONE; +diphenhydrAMINE 50MG/ML VIAL As Ordered ONE; +fentaNYL 250 MCG/5 ML INJECTION As Ordered ONE; +propofoL 200 MG/20 ML VIAL As Ordered ONE
[2022-05-04] MEDS ORDERED: SUGAMMADEX SODIUM 500 MG/5 ML VIAL (BRIDION) As Ordered ONE (08:56)
[2022-05-04] MEDS ORDERED: GENTAMICIN SULF 80MG/2ML VIAL As Ordered ONE (11:00)
[2022-05-04] MEDS ORDERED: BUPIVACAINE HCL 0.25% 10ML VIAL As Ordered ONE (11:00)
[2022-05-04] MEDS ORDERED: BUPIVACAINE LIPOSOME/PF 1.3% 20ML VIAL (13.3MG/ML)(EXPAREL) As Ordered ONE (11:00)
[2022-05-04] MEDS ORDERED: ePHEDrine SULFATE 25 MG/5 ML(5MG/ML) SYRINGE As Ordered ONE ×2 (11:55→12:22)
[2022-05-04] MEDS ORDERED: PHENYLephrine 500MCG 5ML (100MCG/ML) SYRINGE As Ordered ONE (12:19)
[2022-05-04] MEDS ORDERED: propofoL 200 MG/20 ML VIAL As Ordered ONE (12:35)
[2022-05-04] MEDS ORDERED: ACETAMINOPHEN 1000MG 100ML IV BAG As Ordered ONE (12:40)
[2022-05-04] MEDS ORDERED: ePHEDrine INJ 50MG/ML 1ML VIAL As Ordered ONE (12:50)
[2022-05-04] MEDS ORDERED: HYDROmorphone HCL 2MG/ML 1ML VIAL As Ordered ONE (13:36)
[2022-05-04] MEDS ORDERED: ONDANSETRON 4MG 2ML VIAL IV PRN ×2 (14:35→14:45)
[2022-05-04] MEDS ORDERED: ACETAMINOPHEN TAB 650MG DOSE (2X325MG) PO PRN (14:45)
[2022-05-04] MEDS ORDERED: LEVALBUTEROL HFA 45MCG/ACT 15GM INHALER INH PRN (14:45)
[2022-05-04] MEDS: fentaNYL 100 MCG/2 ML INJECTION IV PRN ×4 (15:34→16:19)
[2022-05-04] MEDS: oxyCODONE 5MG TAB PO PRN ×3 (15:35→20:30)
[2022-05-04] MEDS: LR 1,000 ML IV SCH (17:09)
[2022-05-04 17:10] VITALS: BP 132/84
[2022-05-04 17:40] VITALS: BP 133/68
[2022-05-04 18:40] VITALS: BP 134/68
[2022-05-04 19:40] VITALS: BP 133/72
[2022-05-04] MEDS ORDERED: QUEtiapine FUMARATE 200 MG TAB PO PRN (20:25)
[2022-05-04 20:40] VITALS: BP 146/84
[2022-05-04 23:40] VITALS: BP 120/59
[2022-05-05] MEDS: LR 1,000 ML IV SCH (03:03)
[2022-05-05] MEDS ORDERED: LEVOTHYROXINE 75MCG TABLET (0.075MG) PO SCH (06:00)
[2022-05-05] MEDS ORDERED: TIOTROPIUM INHALER/CAPSULE (SPIRIVA) INH SCH (08:00)
[2022-05-05] MEDS ORDERED: ADVAIR HFA 115/21MCG INHALER INH SCH (08:00)
[2022-05-05] MEDS ORDERED: ALPRAZolam 0.5 MG TAB PO PRN (08:10)
[2022-05-05] MEDS ORDERED: estradioL 1 MG TAB PO SCH (09:00)
[2022-05-05] MEDS ORDERED: ATORVASTATIN 20 MG TAB PO SCH (09:00)
[2022-05-05] MEDS ORDERED: OXYC-517 PO (11:10)
== END 2022-05-05 12:15 | disposition home or self-care (01) ==
LOC: M SDC 08:36 → MERGE 10:00 → EDUNIT# 10:00 → M ED INP 14:43 → M MS5PR 16:55
PROVIDERS: ADMIT Plastic Surgery Surgery of the Hand; ATTEND Plastic Surgery Surgery of the Hand
DX: N64.81 Ptosis of breast (principal); L90.5 Scar conditions and fibrosis of skin; T85.44XA Capsular contracture of breast implant, initial encounter; J44.9 Chronic obstructive pulmonary disease, unspecified; F17.218 Nicotine dependence, cigarettes, with other nicotine-induced disorders; E03.9 Hypothyroidism, unspecified; F41.9 Anxiety disorder, unspecified; F32.A Depression, unspecified; Z79.899 Other long term (current) drug therapy
CPT/HCPCS: 19316; 19342; 19370; 88300; 88302; 94640; 96360; 96361; C9290; J1100; J2370; J2405; L8600

== ENCOUNTER → 2022-12-09 | Day surgery (SDC) | payer SELFPAY ==
[~2022-12-09] VITALS: Ht 154.9 cm; Wt 56.2 kg
[~2022-12-09] MED LIST changes: +ACETAMINOPHEN 1000MG 100ML IV BAG As Ordered ONE; -ALBUTEROL SULFATE 2.5MG/0.5ML INH NEB SOLN INH STA; -CLINDAMYCIN 900 MG in IV 1 EA IV ONE; +GENTAMICIN SULF 80MG/2ML VIAL As Ordered ONE; +GLYCOPYRROLATE INJ 0.2 MG/ML 2 ML VIAL As Ordered ONE; +LACRILUBE (AKWA TEARS) OPHTH OINT 3.5GM As Ordered ONE; +ONDANSETRON 4MG 2ML VIAL IV PRN; +OXYC1TAB23 PO; +PHENYLephrine 500MCG 5ML (100MCG/ML) SYRINGE As Ordered ONE; +SEVOFLURANE INHAL SOLN 250 ML BTL As Ordered ONE; +SUGAMMADEX SODIUM 500 MG/5 ML VIAL (BRIDION) As Ordered ONE; +VANCOMYCIN HCL 1,000 MG, VIAL MATE ADAPTER 1 EACH in D5W 250 ML IV ONE; -ZAFI1TAB PO; +ZAFI20TA11 PO; -diphenhydrAMINE 50MG/ML VIAL As Ordered ONE; +ePHEDrine SULFATE 25 MG/5 ML(5MG/ML) SYRINGE As Ordered ONE; +fentaNYL 100 MCG/2 ML INJECTION IV PRN; +oxyCODONE 5MG TAB PO PRN
[2022-12-09 11:25] VITALS: BP 112/60; TEMP 96.8; O2SAT 96
== END | disposition home or self-care (01) ==
LOC: M SDC 06:07
PROVIDERS: ATTEND Plastic Surgery Surgery of the Hand
DX: T85.44XD Capsular contracture of breast implant, subsequent encounter (principal); N65.0 Deformity of reconstructed breast; E78.5 Hyperlipidemia, unspecified; E03.9 Hypothyroidism, unspecified; F41.9 Anxiety disorder, unspecified; F32.A Depression, unspecified; J44.9 Chronic obstructive pulmonary disease, unspecified; Z79.899 Other long term (current) drug therapy; Z88.0 Allergy status to penicillin; Z88.2 Allergy status to sulfonamides; Z88.5 Allergy status to narcotic agent; F17.210 Nicotine dependence, cigarettes, uncomplicated
CPT/HCPCS: 11970; 19370; 88300; C9290; J0131; J0665; J1100; J1580; J2250; J2371; J2405; J3010; L8600

== ENCOUNTER → 2023-01-07 | Outpatient (CLI) | payer BC ==
[~2023-01-07] MED LIST changes: -ACETAMINOPHEN 1000MG 100ML IV BAG As Ordered ONE; -GENTAMICIN SULF 80MG/2ML VIAL As Ordered ONE; -GLYCOPYRROLATE INJ 0.2 MG/ML 2 ML VIAL As Ordered ONE; -LACRILUBE (AKWA TEARS) OPHTH OINT 3.5GM As Ordered ONE; -LIDOCAINE 2% 100MG/5ML SDV (FOR ANES.) As Ordered ONE; -LR 1,000 ML IV SCH; -MIDAZOLAM INJ 2MG/2ML VIAL As Ordered ONE; -ONDANSETRON 4MG 2ML VIAL As Ordered ONE; -ONDANSETRON 4MG 2ML VIAL IV PRN; -PHENYLephrine 500MCG 5ML (100MCG/ML) SYRINGE As Ordered ONE; -ROCURONIUM BROMIDE 50MG/5ML VIAL As Ordered ONE; -SEVOFLURANE INHAL SOLN 250 ML BTL As Ordered ONE; -SUGAMMADEX SODIUM 500 MG/5 ML VIAL (BRIDION) As Ordered ONE; -VANCOMYCIN HCL 1,000 MG, VIAL MATE ADAPTER 1 EACH in D5W 250 ML IV ONE; -ePHEDrine SULFATE 25 MG/5 ML(5MG/ML) SYRINGE As Ordered ONE; -fentaNYL 100 MCG/2 ML INJECTION IV PRN; -fentaNYL 250 MCG/5 ML INJECTION As Ordered ONE; -oxyCODONE 5MG TAB PO PRN; -propofoL 200 MG/20 ML VIAL As Ordered ONE
== END ==
LOC: M RAD 11:05
PROVIDERS: ATTEND Internal Medicine Pulmonary Disease
DX: Z12.2 Encounter for screening for malignant neoplasm of respiratory organs (principal); F17.218 Nicotine dependence, cigarettes, with other nicotine-induced disorders

== ENCOUNTER 2023-07-19 07:49 | Observation (INO) | payer BC ==
[2023-07-19] VITALS (7 sets, daily range): BP systolic 144–155; BP diastolic 61–84; TEMP 96.8–97.7; O2SAT 91–99
[~2023-07-19] VITALS: Ht 162.6 cm; Wt 50.6 kg
[~2023-07-19 07:49] MED LIST changes: +PHEN-239 PO
[2023-07-19] MEDS ORDERED: LR 1,000 ML IV SCH (08:20)
[2023-07-19] MEDS ORDERED: propofoL 200 MG/20 ML VIAL As Ordered ONE (09:13)
[2023-07-19] MEDS ORDERED: MIDAZOLAM INJ 2MG/2ML VIAL As Ordered ONE (09:13)
[2023-07-19] MEDS ORDERED: ROCURONIUM BROMIDE 50MG/5ML VIAL As Ordered ONE (09:13)
[2023-07-19] MEDS ORDERED: fentaNYL 100 MCG/2 ML INJECTION As Ordered ONE (09:13)
[2023-07-19] MEDS ORDERED: LIDOCAINE 2% 100MG/5ML SDV (FOR ANES.) As Ordered ONE (09:13)
[2023-07-19] MEDS ORDERED: ONDANSETRON 4MG 2ML VIAL As Ordered ONE (09:13)
[2023-07-19] MEDS ORDERED: dexmedeTOMIDine (4MCG/ML)200MCG/50ML BTL (PRECEDEX) As Ordered ONE (09:16)
[2023-07-19] MEDS ORDERED: LACRILUBE (AKWA TEARS) OPHTH OINT 3.5GM As Ordered ONE (09:28)
[2023-07-19] MEDS: CLINDAMYCIN 900 MG in IV 1 EA IV ONE (10:15)
[2023-07-19] MEDS ORDERED: PHENYLephrine 500MCG 5ML (100MCG/ML) SYRINGE As Ordered ONE (10:24)
[2023-07-19] MEDS ORDERED: ACETAMINOPHEN 1000MG 100ML IV BAG As Ordered ONE (11:03)
[2023-07-19] MEDS ORDERED: SUGAMMADEX SODIUM 500 MG/5 ML VIAL (BRIDION) As Ordered ONE (11:04)
[2023-07-19] MEDS ORDERED: HYDROmorphone HCL 2MG/ML 1ML VIAL As Ordered ONE (11:18)
[2023-07-19] MEDS: GENTAMICIN SULF 80MG/2ML VIAL As Ordered ONE (11:49)
[2023-07-19] MEDS ORDERED: oxyCODONE 5MG TAB PO PRN ×2 (12:40→12:55)
[2023-07-19] MEDS ORDERED: fentaNYL 100 MCG/2 ML INJECTION IV PRN (12:40)
[2023-07-19] MEDS: LR 1,000 ML IV SCH ×2 (12:40→16:36)
[2023-07-19] MEDS ORDERED: LEVALBUTEROL HFA 45MCG/ACT 15GM INHALER INH PRN (12:55)
[2023-07-19] MEDS ORDERED: ONDANSETRON 4MG 2ML VIAL IV PRN (12:55)
[2023-07-19] MEDS ORDERED: ACETAMINOPHEN TAB 650MG DOSE (2X325MG) PO PRN (12:55)
[2023-07-19] MEDS ORDERED: ESTR2TAB3 PO (15:26)
[2023-07-19] MEDS ORDERED: HOME MED LIST COMPLETE! XX SCH (15:30)
[2023-07-19] MEDS ORDERED: PILL CUTTER 1 EACH XX PRN (15:45)
[2023-07-19] MEDS: oxyCODONE 5MG TAB PO PRN (16:33)
[2023-07-19] MEDS: QUEtiapine FUMARATE 200 MG TAB PO PRN (22:30)
[2023-07-20] VITALS: BP 127/57; TEMP 97.7; O2SAT 90
[2023-07-20 04:00] VITALS: BP 125/59; TEMP 97.5; O2SAT 90
[2023-07-20] MEDS: LEVOTHYROXINE 75MCG TABLET (0.075MG) PO SCH (04:49)
[2023-07-20] MEDS: oxyCODONE 5MG TAB PO PRN (04:49)
[2023-07-20 08:00] VITALS: BP 144/77; TEMP 97.3; O2SAT 90
[2023-07-20] MEDS: ATORVASTATIN 20 MG TAB PO SCH (09:02)
[2023-07-20] MEDS: lamoTRIgine 100MG TAB PO SCH (09:02)
[2023-07-20 12:00] VITALS: BP 140/95; TEMP 97; O2SAT 92
[2023-07-20] MEDS ORDERED: OXYC-517 PO (14:34)
== END 2023-07-20 15:05 | disposition home or self-care (01) ==
LOC: M SDC 07:49 → M RR INP 07:50 → M MS5PR 15:00
PROVIDERS: ADMIT Plastic Surgery Surgery of the Hand; ATTEND Plastic Surgery Surgery of the Hand
DX: L90.5 Scar conditions and fibrosis of skin (principal); R10.30 Lower abdominal pain, unspecified; E03.9 Hypothyroidism, unspecified; J44.9 Chronic obstructive pulmonary disease, unspecified; F17.218 Nicotine dependence, cigarettes, with other nicotine-induced disorders; F41.9 Anxiety disorder, unspecified; F32.A Depression, unspecified; Z88.5 Allergy status to narcotic agent; Z88.0 Allergy status to penicillin; Z88.2 Allergy status to sulfonamides; Z79.899 Other long term (current) drug therapy
CPT/HCPCS: 13101; 13102; 88300; C9290; J0131; J0665; J0737; J1100; J1170; J1580; J2250; J2371; J2405; J3010

== ENCOUNTER → 2024-11-19 | Outpatient (CLI) | payer BC ==
[~2024-11-19] MED LIST changes: -ADV250INH INH; +ADVA1AER9 INH; -AMBI10TA PO; +BUPR-766 PO; -BUPR300T92 PO; +ESTR2TAB3 PO; +LEVA15HF2 INH; -LEVAINH INH; -PHEN-239 PO; +PHEN37.511 PO; +ZOLP-533 PO
== END ==
LOC: M RAD 09:25
PROVIDERS: ATTEND Internal Medicine Pulmonary Disease
DX: Z12.2 Encounter for screening for malignant neoplasm of respiratory organs (principal); F17.218 Nicotine dependence, cigarettes, with other nicotine-induced disorders